=== PATIENT | female | born 1955 | race Two or more races ===

== ENCOUNTER 2020-08-11 20:25 | Emergency (ER) | payer OTHER ==
[~2020-08-11] VITALS: Ht 160 cm; Wt 68.0 kg
[2020-08-11 20:32] VITALS: BP 196/85
== END 2020-08-12 00:48 | disposition left against medical advice (07) ==
LOC: ER 20:25
DX: R51 Headache (principal); Z53.21 Procedure and treatment not carried out due to patient leaving prior to being seen by health care provider
CPT/HCPCS: 93005

== ENCOUNTER 2021-07-13 05:53 | Inpatient (IN) | payer MEDICARE, OTHER ==
[~2021-07-13] VITALS: Ht 160 cm; Wt 68.0 kg
[2021-07-13] MEDS ORDERED: MORPHINE SULFATE 4 MG/ML CPJ (NOT FOR IM USE) IV STA (06:04)
[2021-07-13 06:35] LABS: BASOPHILS % 0.8 % (0.0-2.0); EOSINOPHILS % 4.5 % (0.0-5.0); HEMOGLOBIN. 11.9 g/dL (12.0-16.0); MEAN CORPUSCULAR HEMOGLOBIN 28.4 pg (28.0-32.0); MEAN CORPUSCULAR VOLUME 83.2 fL (81.0-99.0); MEAN PLATELET VOLUME 7.8 fl (7.4-10.4); MONOCYTES % 10.8 % (2.0-8.0); NEUTROPHILS % 52.9 % (40.0-76.0); PLATELET 206 x1000/uL (130-400); RED CELL DISTRIBUTION WIDTH 14.1 % (11.6-14.6)
[2021-07-13 06:41] LABS: CHLORIDE 111 mEq/L (98-107)
[2021-07-13 06:54] LABS: PROTHROMBIN TIME 10.7 sec (9.6-11.0)
[2021-07-13] MEDS ORDERED: MORPHINE SULFATE 4 MG/ML CPJ (NOT FOR IM USE) IV ONE (07:30)
[2021-07-13 08:30] LABS: CLARITY URINE CLEAR (CLEAR); COLOR URINE YELLOW (YELLOW); KETONES URINE NEGATIVE (NEGATIVE); LEUKOCYTE ESTERASE URINE 1+ (NEGATIVE); NITRITE URINE NEGATIVE (NEGATIVE); OCCULT BLOOD URINE NEGATIVE (NEGATIVE); PH URINE 7.5 (4.5-8.0); PROTEIN URINE TRACE (NEGATIVE); UROBILINOGEN URINE 0.2 E.U./dL (0.2-1.0)
[2021-07-13] MEDS ORDERED: IOHEXOL-300 100 ML BOTTLE ONE (11:12)
[2021-07-13] MEDS ORDERED: ACETAMINOPHEN 325MG TABLET PO PRN (13:15)
[2021-07-13] MEDS ORDERED: ONDANSETRON HCL 4MG/2ML INJ IV PRN (14:45)
[2021-07-13 15:00] VITALS: BP 144/75
[2021-07-13 16:00] VITALS: BP 144/75
[2021-07-13] MEDS ORDERED: OMEP40CA12 PO (18:31)
[2021-07-13] MEDS ORDERED: AMLO10TA80 PO (18:31)
[2021-07-13] MEDS ORDERED: PANT40TA51 PO (18:31)
[2021-07-13] MEDS ORDERED: CARV25TA47 PO (18:31)
[2021-07-13] MEDS ORDERED: AM250 PO (18:31)
[2021-07-13] MEDS ORDERED: IRBE150T24 PO (18:31)
[2021-07-13] MEDS ORDERED: FURO40TA5 PO (18:31)
[2021-07-13] MEDS ORDERED: CLOP75TA33 PO (18:31)
[2021-07-13] MEDS ORDERED: MELO-104 PO (18:31)
[2021-07-13] MEDS ORDERED: HYOS0.3738 PO (18:31)
[2021-07-13] MEDS ORDERED: NITR0.4T49 SL (18:31)
[2021-07-13] MEDS ORDERED: IRBE75TA9 PO (18:31)
[2021-07-13] MEDS ORDERED: T3 PO (18:31)
[2021-07-13] MEDS ORDERED: *PATIENT'S OWN MEDICATION STORAGE XX SCH (19:15)
[2021-07-13 20:00] VITALS: BP 128/57
[2021-07-13] MEDS ORDERED: HYDROCODONE/ACETAMINOPHEN 5/325MG TABLET PO PRN (21:15)
[2021-07-14] VITALS: BP 110/62
[2021-07-14 04:00] VITALS: BP 118/42
[2021-07-14 08:00] VITALS: BP 135/70
[2021-07-14 12:00] VITALS: BP 125/66
[2021-07-14 12:58] LABS: BASOPHILS % 0.9 % (0.0-2.0); EOSINOPHILS % 4.1 % (0.0-5.0); HEMATOCRIT. 35.9 % (36.0-48.0); HEMOGLOBIN. 12.8 g/dL (12.0-16.0); LYMPHOCYTES % 29.1 % (20.0-50.0); MEAN CORPUSCULAR VOLUME 84.3 fL (81.0-99.0); MEAN PLATELET VOLUME 7.8 fl (7.4-10.4); MONOCYTES % 13.4 % (2.0-8.0); NEUTROPHILS % 52.5 % (40.0-76.0); PLATELET 219 x1000/uL (130-400); RED BLOOD CELL COUNT 4.26 mill/uL (4.2-5.4)
[2021-07-14 13:06] LABS: CHLORIDE 110 mEq/L (98-107)
[2021-07-14] MEDS ORDERED: HYDR-4001 MT (14:29)
[2021-07-14] MEDS ORDERED: METO5TAB86 MT (14:29)
[2021-07-14 16:00] VITALS: BP 155/74
[2021-07-14 16:22] VITALS: BP 155/74
== END 2021-07-14 17:40 | disposition home or self-care (01) | DRG 392 ==
LOC: ER 06:21 → 6EST 10:48 → EDBEDREQTM 11:02 → EDBEDREQ 11:02 → ENRESERV 12:11
PROVIDERS: ADMIT Internal Medicine; ATTEND Internal Medicine
DX: R10.11 Right upper quadrant pain (principal); D64.9 Anemia, unspecified; D70.9 Neutropenia, unspecified; Z20.822 Contact with and (suspected) exposure to COVID-19; R74.01 Elevation of levels of liver transaminase levels; E87.8 Other disorders of electrolyte and fluid balance, not elsewhere classified; I10 Essential (primary) hypertension; Z79.02 Long term (current) use of antithrombotics/antiplatelets; I25.2 Old myocardial infarction; Z79.899 Other long term (current) drug therapy; Z90.49 Acquired absence of other specified parts of digestive tract; Z90.710 Acquired absence of both cervix and uterus; Z95.5 Presence of coronary angioplasty implant and graft; Z88.8 Allergy status to other drugs, medicaments and biological substances; Z79.1 Long term (current) use of non-steroidal anti-inflammatories (NSAID); Z87.19 Personal history of other diseases of the digestive system
CPT/HCPCS: 36415; 71045; 74177; 76700; 80053; 81003; 85025; 86301; 87426; 93005; 99285; J2270; Q9967